=== PATIENT | male | born 1970 | race Caucasian/White ===

== ENCOUNTER 2020-07-11 08:35 | Outpatient (CLI) | payer MEDICAID, SELFPAY ==
--- NOTE | 2020-07-11 08:55 | MR_ITS ---
WS: [id number] MRI LEFT SHOULDER HISTORY: INTERNAL DERANGEMENT OF LEFT SHOULDER COMPARISON: LEFT shoulder radiograph 01/29/2020 TECHNIQUE: Multiplanar sequences of the shoulder joint are submitted. Moderate hypertrophy and degenerative changes at the AC joint. Soft tissue and bone hypertrophy with subchondral cystic changes and loss of the normal cortex. Moderate size osteophyte measuring 4 mm ext ends inferiorly with encroachment upon the supraspinatus muscle. There is a small amount of fluid in the subacromial and subdeltoid bursa. No os acromion. Full-thickness insertion site tear supraspinatus tendon with 10 mm retraction. There is additional fl uid extending along the tendon sheath and significant tendinopathy in the tendon over the superior hu meral head. No muscle atrophy. Additional significant encroachment upon the supraspinatus muscle by c lavicular osteophyte at the medial humeral head. There is abnormal signal within the distal 3 to 4 cm of the subscapularis tendon. No retraction of th e tendon. Suspect partial small tear along the distal articular surface. Infraspinatus tendon and the teres minor are negative. Biceps tendon remains at the bicipital groove. Large subchondral cyst is multilobulated in the optical instrument assembly supervisor ior lateral humeral head. Loss of the normal cartilage surrounding the humeral head. No definite labr al tear is identified. MR/MR shoulder LT wo con* [id number] IMPRESSION: 1. Moderate AC joint degeneration with 4 mm osteophyte encroaching upon the peguero praspinatus muscle. 2. Complete tear distal supraspinatus tendon with 10 mm of retraction. 3. Additional tendinopathy in the distal supraspinatus tendon. 4. Marked tendinopathy in the subscapularis tendon with a very small articular surface tear. 5. Chronic degenerative changes with osteophytes and loss of cartilage and sub chondral cysts involving the humeral head.
== END 2020-07-11 08:36 | disposition home or self-care (01) ==
LOC: RADWPI 08:38
PROVIDERS: Family Provider Internal Medicine; PCP Internal Medicine; Visit Provider Internal Medicine
DX: M24.812 Other specific joint derangements of left shoulder, not elsewhere classified (principal); M25.712 Osteophyte, left shoulder; M75.122 Complete rotator cuff tear or rupture of left shoulder, not specified as traumatic
CPT/HCPCS: 73221

== ENCOUNTER 2020-08-22 05:57 | Day surgery (SDC) | payer MEDICAID, SELFPAY ==
[2020-08-21 14:13] VITALS: BMI 31.4
[2020-08-22] VITALS (7 sets, daily range): BP systolic 116–141; BP diastolic 79–97; PULSE 62–78; RESP 16–18; TEMP 36.5–37.2; O2SAT 94–98
[2020-08-22 05:55] LABS: Glucose Point of Care 122 mg/dL (70-110)
[2020-08-22] MEDS: sodium chloride 0.9% 1,000 ML 30 ML IV (06:30)
--- NOTE | 2020-08-22 06:36 | ANES.PREANE2 ---
Pre-Anesthetic Assessment Pre-Anesthetic Assessment: Height/Weight: Height 1.8 m Weight 102.058 kg Temp Pulse Resp BP Pulse Ox 97.7 F 70 18 141/97 96 08/22/20 05:38 08/22/20 05:38 08/22/20 05:38 08/22/20 05:38 08/22/20 05:38 Preop Diagnosis: Left rotator cuff tear Proposed Procedure: Operation Date: 08/22/20 07:00 Proposed Procedures p left Shoulder Arthroscopy with rotator cuff repair 65172 M75.102(Left) - William Lee MD Familial anesthetic complications: None Was Beta Janie taken within 24 hours: N/A Last intake: Intake NPO > 8 hrs Last Liquid Date 08/21/20 Last Solid Date 08/21/20 Social: Social History: No alcohol and No tobacco Exam: Pre-Anes Outpt Exam: alert, oriented x 3, clear to auscultation bilaterally and regular rate & rhythm Airway: Cervical ROM: WNL MP: 3 Dentition: Other (missing (poor dentition)) Metabolic: Metabolic: DM (on lisinopril) Anesthetic Plan: ASA status: 2 Anesthesia: General and Regional (specify below) Risk of > 500 ml blood loss (7ml/kg in children): No PFSH Anesthesia PFSH: Social History (Updated 07/30/20 @ 14:49 by Omar Gonzales LPN) Smoking and tobacco status: never smoked Alcohol intake: current Alcohol intake frequency: holidays/special occasions only Data Anesthesia Other Labs: Laboratory Results - last 48 hr 08/22/20 05:51 POC Glucose 122 Cardiac Studies: No Data to Display
--- NOTE | 2020-08-22 06:37 | ANES.PROC ---
Anesthesia Procedures Procedure/Date: 08/22/20 Nerve Block ^: Nerve Block 1: Main Anesthesia: general anesthesia Time Out Performed: Yes Consent: requested by attending/covering physician, from patient, from other, risks and benefits reviewed and patient agrees to proceed Nerve block location: interscalene (L) Anesthesia monitors applied: pulse oximetry, EKG and BP cuff Nerve block position: semi sitting Anesthetic Used: ropivicaine 0.5% and with decadron (4 mg) Amount of anesthesia used (mL): 30 Ultrasound used to: recognize landmarks and visualize and ID brachial plexus Nerve Stimulator Used?: No Interscalene/Femoral BLK: 2 stimuplex 22 g needle used for position and inplane approach, other needle, visualize local anesthetic spread and no vascular puncture identified Injection: neg aspiration of heme Patient Tolerated Procedure: well and no complications Complications: none
[2020-08-22] MEDS: midazolam 1 mg/mL INJ 2 mL 2 MG IVP (06:47)
--- NOTE | 2020-08-22 07:09 | W.PM.OPSUD ---
Surgery/Procedure H&P Update DATE OF PROCEDURE: August 22, 2020 DATE H&P PERFORMED: 07/30/20 PREOP DIAGNOSIS: Left rotator cuff tear PLANNED PROCEDURE: Operation Date: 08/22/20 07:00 Proposed Procedures p left Shoulder Arthroscopy with rotator cuff repair 33398 M75.102(Left) - William Lee MD
--- NOTE | 2020-08-22 08:32 | P.OP_ITS ---
Operative Report Date of procedure: August 22, 2020 Pre-op Diagnosis: Left rotator cuff tear Post-op diagnosis: same Post-op Diagnosis: Left rotator cuff tear and impingement Post-op Findings: Same Procedure Done: Arthroscopic left rotator cuff repair, arthroscopic left subacromial decompression Pathology: none sent Surgeon: William Lee Anesthesia: General and Nerve Block (Interscalene block) Findings: The patient had a full-thickness tear of his left rotator cuff beginning just posterior to the biceps tendon approximately a centimeter from anterior to posterior with a centimeter tendinous retraction. Prominent s purring of his acromion. His biceps revealed minimal fraying but was stable in the bicipital groove without significant tearing. He had no chondromalacia of his humeral head or glenoid. Condition: stable Disposition: PACU Procedure: The patient was taken to the operating room after he was given an int erscalene block. He was given 2 g of Ancef. He was positioned in the lateral position with his left arm with 15 pounds of traction. A timeout was performed. A posterior portal was made 2 cm inferior medial to the posterior corded acromion. A scope cannula and trocar were driven into the glenohumeral joint. An 8 mm inflow cannula was placed anteriorly. The diagnostic portion arthroscopy was performed. The biceps tendon was carefully inspected and found to be free of tearing. Degenerative changes the glenohumeral joint or labral pathology of significance was noted. The partial-thickness tear of the rotator cuff was identified. The scope was then directed to the subacromial space. A working lateral portal was made over the rotator cuff tear in the anterior cannula directed into the subacromial space. Initial use of the [employer] Nephew Werewolf probe was used to outlined the leading edge of acromion removed bursal tissue. The patient had fairly prominent spurring. A 5 5 acromionizer was introduced laterally and approximately 5 mm of anterior and inferior acromion removed. Attention was then directed to the rotator cuff. A acromionizer was used to to debride the tuberosity to vascular bone. Through a lateral stab wound a 5.5 mm Matute [employer] Nephew Helicoil anchor was placed. The [employer]hew FirstPass suture passer was used to shuttle 1 limb of Ultrarape through the posterior rotator cuff approximately 6 mm from the edge of the tendon. The Ultrabraid suture was then passed proximately 5 mm anteriorly and 3 mm medially to that first suture. The second free limb of Ultratape was then passed proximally 5 mm anteriorly and just lateral to the Ultrabraid suture. The Ultratape sutures were tied first and the Ultrabraid suture second overlapping that ultra tape suture drawing the rotator cuff down to the debrided bone. The shoulder was irrigated with saline. Portals were closed with 3-0 Prolene. Sterile dressings were applied. The patient was extubated, placed in a sling, and taken to recovery room in stable condition.
--- NOTE | 2020-08-22 08:40 | SUR.PHASEI ---
PT AWAKES TO VOICE DENIES PAIN AND NAUSEA, PT SLEEPS IF NOT DISTURBED HOB AT 30 DEGREES LT SHOULDER DRESSIGN AND SLING ON PLACE, VSS DISTAL FINGERS WARM PINK WITH CAP REFILL LESS THAN 3 SECONDS.
--- NOTE | 2020-08-22 15:49 | ANE.PACU2 ---
Inpatient post-anesthesia follow up: Airway intact: Yes Vital signs: Temperature 98.9 F Pulse Rate 70 Respiratory Rate 18 Blood Pressure 116/79 Pulse Oximetry 94 Oxygen Delivery Me thod Room Air Oxygen Flow Rate 8 Fraction of Inspir ed Oxygen Hydration adequate: Yes Nausea and vomiting: No Pain level: 1 Mental status: Baseline
== END 2020-08-22 09:30 | disposition home or self-care (01) ==
PROVIDERS: PCP Internal Medicine; Visit Provider Orthopaedic Surgery
PROC: (CPT 29805; principal; 2020-08-22 07:00)
DX: M75.102 Unspecified rotator cuff tear or rupture of left shoulder, not specified as traumatic (principal); E11.9 Type 2 diabetes mellitus without complications; Z79.4 Long term (current) use of insulin
CPT/HCPCS: 29826; 29827; 12345; 36416; 64415; 76942; 82962; 96374; C1713; J0690; J1100; J2250; J2405; J2704; J2710; J2765; J2795; J3010; J3490; J7030